=== PATIENT | male | born 1935 | race Caucasian/White ===

== ENCOUNTER 2016-08-04 14:53 | Inpatient (IN) | payer MEDICARE, OTHER ==
[2016-08-04] MEDS ORDERED: LORazepam Conc Solution 2 MG/ML 30 ML Bottle PO PRN (15:05)
[2016-08-04] MEDS ORDERED: Morphine Oral Concentrate 20 MG/ML 30 ML Bottle PO PRN (15:07)
[2016-08-04] MEDS ORDERED: Cyclobenzaprine 10 MG Tab PO PRN (15:11)
[2016-08-04] MEDS ORDERED: Sennosides 8.6 MG Tab PO PRN (15:17)
[2016-08-04] MEDS ORDERED: Haloperidol 1 MG Tab PO PRN (15:17)
[2016-08-04] MEDS ORDERED: Magnesium Hydroxide 400 MG/5 ML Susp 30 ML Cup PO PRN (15:18)
[2016-08-04] MEDS ORDERED: Hyoscyamine 0.125 MG/ML Bottle PO PRN (15:21)
[2016-08-04] MEDS ORDERED: Latanoprost 0.005% Ophth Soln 2.5 ML Bottle ONE (20:00)
[2016-08-04] MEDS: Latanoprost 0.005% Ophth Soln 2.5 ML Bottle EYEBOTH SCH (21:54)
[2016-08-05] MEDS: Acetaminophen/Codeine 300-30 MG Tab PO PRN (13:40)
[2016-08-05] MEDS: Sennosides 8.6 MG Tab PO SCH (20:03)
[2016-08-05] MEDS ORDERED: Sennosides 8.6 MG Tab PO SCH (21:00)
[2016-08-05] MEDS: Latanoprost 0.005% Ophth Soln 2.5 ML Bottle EYEBOTH SCH (21:48)
[2016-08-06] MEDS: Acetaminophen/Codeine 300-30 MG Tab PO PRN ×2 (01:12→15:18)
[2016-08-06] MEDS: Sennosides 8.6 MG Tab PO SCH ×3 (10:00→21:28)
[2016-08-06] MEDS: Latanoprost 0.005% Ophth Soln 2.5 ML Bottle EYEBOTH SCH (21:28)
[2016-08-07] MEDS: Sennosides 8.6 MG Tab PO SCH ×2 (09:00→20:35)
[2016-08-07] MEDS: Latanoprost 0.005% Ophth Soln 2.5 ML Bottle EYEBOTH SCH (20:35)
[2016-08-08] MEDS: Sennosides 8.6 MG Tab PO SCH ×2 (08:05→20:22)
[2016-08-08] MEDS: Acetaminophen/Codeine 300-30 MG Tab PO PRN (14:25)
[2016-08-08] MEDS ORDERED: Acetaminophen/Codeine 300-30 MG Tab PO PRN (16:12)
[2016-08-08] MEDS: Latanoprost 0.005% Ophth Soln 2.5 ML Bottle EYEBOTH SCH (20:22)
[2016-08-09 09:10] VITALS: BP 185/93
[2016-08-09] MEDS: Sennosides 8.6 MG Tab PO SCH (09:20)
== END 2016-08-09 11:55 | disposition hospice, home (50) | DRG 884 ==
LOC: MW.MS 14:53
PROVIDERS: ADMIT Internal Medicine; ATTEND Internal Medicine
DX: F03.90 Unspecified dementia, unspecified severity, without behavioral disturbance, psychotic disturbance, mood disturbance, and anxiety (principal); Z51.5 Encounter for palliative care
CPT/HCPCS: 51703; A9270-GY